=== PATIENT | female | born 2000 | race Caucasian/White ===

== ENCOUNTER 2022-12-10 21:59 | Emergency (ER) | payer OTHER, SELFPAY ==
[2022-12-10 22:00] VITALS: BP 144/63; PULSE 83; RESP 18; TEMP 36.6; O2SAT 100
[2022-12-10] MEDS: ALPRAZolam (*CRX) 0.5 MG TABLET PO (22:25)
--- NOTE | 2022-12-10 22:25 | ED.HA ---
HPI - Headache General Chief Complaint: Headache Stated Complaint: pulsing headache Source: patient and family Mode of arrival: ambulatory Limitations: no limitations History of Present Illness HPI Narrative: This is a 22-year-old female that had a previous migraine approximately 2 to 3 months ago presents this evening with a mild headache but more pulsating sensation above her right eye with some no neck stiffness no neurological deficits no fever chills no nausea vomiting. Patient and mother states that she is moving out of soon and moving out on her own and feels a little stress and anxiety in relation to moving about on her own. MD elicited complaint: headache Onset description: gradually Location: right Severity: mild Quality & Timing: pulsatile Review of Systems Review of Systems: All systems reviewed & are unremarkable except as noted in HPI and below PMFSH Past Medical History Medical History History of migraine Exam Const: General: healthy appearing Nutritional Appearance: well nourished Orientation/consciousness: patient oriented x3 Limitations: no limitations HENMT: Head: normal to inspection Ears: external ears normal Face/Nose/Sinus: Normal external nose present Face and sinus: normal facial exam Eyes: Conjunctivae: conjunctivae normal Pupils: Equal, round and reactive pupils present EOM: EOMs intact bilaterally Neck: Neck: normal visual inspection, no lymphadenopathy and no meningeal signs Chest: Chest palpation & inspection: normal inspection of the chest Resp: Effort & Inspection: normal respiratory effort Cardio: Rate: regular rate Rhythm: regular rhythm GI: GI Palp: Yes Soft to palpation Auscultation: normal bowel sounds : General: Yes bladder normal to palpation Urinary Catheter: Urinary Catheter: patent and draining Skin: General skin exam: normal color Rashes: no rashes Wounds: no wounds Neuro: General: patient oriented x3, moves all extremities, no meningeal signs and no focal motor deficits Extrem: General: normal to inspection and no clubbing, cyanosis or edema Psych: Mental Status: mental status grossly normal Affect: Anxious affect present Course Course Emergency Course: patient received Xanax 0.5mg p.o. and reassessment patient symptoms have improved. Vital Signs Vital signs: Vital Signs Temperature 36.6 C 12/10/22 22:00 Pulse Rate 83 12/10/22 22:00 Respiratory Rate 18 12/10/22 22:00 Blood Pressure 144/63 H 12/10/22 22:00 Pulse Oximetry 100 12/10/22 22:00 Oxygen Delivery Room Air 12/10/22 22:00 Temperature 36.6 C 12/10/22 22:00 Pulse Rate 83 12/10/22 22:00 Respiratory Rate 18 12/10/22 22:00 Blood Pressure 144/63 H 12/10/22 22:00 Pulse Oximetry 100 12/10/22 22:00 Oxygen Delivery Room Air 12/10/22 22:00 Critical Care Time Critical Care Time Critical Care Time: No Discharge Plan Discharge Clinical Impression: Anxiety Headache Qualifiers: Headache type: unspecified Headache chronicity pattern: unspecified pattern Intractability: not intractable Qualified Code(s): R51.9 - Headache, unspecified Patient Disposition: Home, Self-Care Condition: Stable Instructions: Antibiotic Form, Acute Headache (ED), Anxiety (ED) Additional Instructions: advised take medicine as prescribed and follow-up with primary care physician if symptoms persist or worsen. Prescriptions: New alprazolam [Xanax] 0.5 mg tablet 0.5 mg PO BID PRN (Reason: anxiety) Qty: 14 0RF Follow-up/Referrals: Floyd Driver MD [Primary Care Provider] - Time of Disposition: 22:31
[2022-12-10 22:38] VITALS: BP 113/66; PULSE 88; RESP 20; TEMP 36.7; O2SAT 99
== END 2022-12-10 22:40 | disposition home or self-care (01) ==
PROVIDERS: Emergency Provider Emergency Medicine; PCP Internal Medicine
DX: F41.9 Anxiety disorder, unspecified (principal); R51.9 Headache, unspecified
CPT/HCPCS: 99283; A9270